=== PATIENT | male | born 1945 | race Caucasian/White ===

== ENCOUNTER 2023-04-11 12:42 | Emergency (ER) | payer MEDICARE, OTHER ==
[2023-04-11 13:05] VITALS: BP 105/54
[2023-04-11] MEDS ORDERED: MUPIROCIN 2% OINT 1 GM TOP STA (13:29)
--- NOTE | 2023-04-11 13:32 | ED Physician Documentation ---
PD HPI UPPER EXT INJURY - Stated complaint Stated Complaint: RT ARM INJ, GLF - Chief complaint Chief Complaint: Laceration - History obtained from History obtained from: Patient, Family - History of Present Illness Location: Right, Forearm Type of injury: Fall Timing - onset: Yesterday Timing - details: Abrupt onset, Still present (she fell onto some gravel/rocks yeterday causing some lacerations/avulsion on forearm. Sone brought her in today to see if anything to do about them.) Worsened by: Palpating. No: Moving Associated symptoms: No: Weakness, Numbness Contributing factors: No: Anticoagulated Review of Systems Musculoskeletal: denies: Neck pain, Back pain Neurologic: denies: Focal weakness, Numbness, Headache, Head injury PD PAST MEDICAL HISTORY - Present Medications Home Medications: Ambulatory Orders Medication Instructions Recorded Confirmed Mupirocin 2% Oint [Bactroban 2% 1 applic TOP TID #15 gm 04/11/23 Oint] - Allergies Allergies/Adverse Reactions: Allergies Allergy/AdvReac Type Severity Reaction Status Date / Time Sulfa (Sulfonamide Allergy Unknown Verified 04/11/23 12:55 Antibiotics) PD ED PE NORMAL - Vitals Vital signs reviewed: Yes - General General: Alert and oriented X 3, No acute distress, Well developed/nourished - Derm Derm: Normal color, Warm and dry - Extremities Extremities: Other (right forearm with several 1-3 cm sized wounds of thin skin peeled avulsions with skin still attached. No FBs noted. I trimmed off the loose skin pieces to have better ability for cleaning/washing. No full thickness lacs. ) - Neuro Neuro: Alert and oriented X 3, No motor deficit, No sensory deficit, Normal speech Results - Vitals Vitals: Vital Signs - 24 hr 04/11/23 12:49 Temperature 36.3 C L Heart Rate 63 Respiratory 16 Rate Blood Pressure 105/54 L O2 Saturation 96 Oxygen O2 Source Room air PD Medical Decision Making - ED course Complexity details: considered differential (several areas of thin skin peels and loose skin, trimmed off. No other treatment indicated. No idnications for bony/muscular injury. ), d/w patient Departure - Departure Disposition: 01 Home, Self Care Clinical Impression: Skin avulsion Condition: Stable Record reviewed to determine appropriate education?: Yes Instructions: ED Avulsion Dermal Follow-Up: ROSALINA FUNG MD [Primary Care Provider] - Prescriptions: Mupirocin 2% Oint [Bactroban 2% Oint] 1 applic TOP TID #15 gm Comments: I did trim off the thin layer of peeled skin. This is too thin for her to really heal in and just provides a hiding place for blood and germs. Clean the wounds once or twice daily with soap and water and apply a little bit of ointment ([id number] bacitracin/Neosporin or the prescription mupirocin). Dressing over it to protect the area. These typically heal in over 2 to 3 weeks. I will take a bit longer than an average wound. Recheck if signs of infection. Activity as tolerated. Forms: PCP List Discharge Date/Time: 04/11/23 14:11
== END 2023-04-11 14:11 | disposition home or self-care (01) ==
LOC: ED 12:42
DX: S51.801A Unspecified open wound of right forearm, initial encounter (principal); W18.30XA Fall on same level, unspecified, initial encounter
CPT/HCPCS: 99282; 99283; A9270